=== PATIENT | male | born 1935 | race Caucasian/White ===

== ENCOUNTER 2019-08-23 11:43 | Emergency (ER) | payer MEDICARE, OTHER ==
[~2019-08-23] VITALS: Ht 182.9 cm; Wt 72.6 kg
[2019-08-23 12:26] LABS: BASOPHILS # (AUTO) 0.1 (0.0-0.1); BASOPHILS % 0.5 % (0.0-1.0); EOSINOPHILS # (AUTO) 0.1 (0.0-0.4); EOSINOPHILS % 0.9 % (0.0-6.0); HEMATOCRIT 27.3 % (38.2-49.6); HEMOGLOBIN 9.1 g/dL (14.0-18.0); LYMPHOCYTES # (AUTO) 1.3 (1.0-3.2); LYMPHOCYTES % 12.7 % (18.0-39.1); MEAN CORPUSCULAR HEMOGLOBIN 29.6 pg (28-32); MEAN CORPUSCULAR HGB CONC 33.3 g/dL (31-35); MEAN CORPUSCULAR VOLUME 88.9 fL (81-99); MONOCYTES # (AUTO) 0.6 (0.2-0.8); MONOCYTES % 5.9 % (4.4-11.3); NEUTROPHILS % 79.6 % (38.7-80.0); PLATELET COUNT 243 x10e3/uL (140-360); RED BLOOD COUNT 3.07 x10e6/uL (4.3-5.7); RED CELL DISTRIBUTION WIDTH 13.1 % (11.7-14.4)
[2019-08-23 12:53] LABS: ALANINE AMINOTRANSFERASE 17 IU/L (0-55); ALBUMIN 3.4 g/dL (3.5-5.0); ALBUMIN/GLOBULIN RATIO 1.2 (0.8-2.0); ALKALINE PHOSPHATASE 89 IU/L (40-150); ANION GAP 15.2 mmol/L (8-16); BLOOD UREA NITROGEN 44 mg/dL (7-26); BUN/CREATININE RATIO 38 (6-25); CALCIUM 9.5 mg/dL (8.4-10.2); CARBON DIOXIDE 21 mmol/L (22-29); CHLORIDE 104 mmol/L (98-107); CREATINE KINASE 51 IU/L (30-200); CREATININE, SERUM 1.15 mg/dL (0.72-1.25); EST GLOMERULAR FILTRATION RATE > 60 ML/MIN (60-); GLUCOSE 341 mg/dL (74-118); LIPASE 48 U/L (8-78); POTASSIUM 5.2 mmol/L (3.5-5.1); SODIUM 135 mmol/L (136-145)
--- NOTE | 2019-08-23 13:09 | Emergency Department Note ---
History of Present Illnes History of Present Illness Chief Complaint: Chest Pain History of Present Illness This is a 83 year old male brought to the ED with diffuse abdominal pain for several days, and this recent weight loss. . \ Chief Complaint Comment PATIENT IN FROM HOME WITH COMPLAINTS OF NAUSEA AND ABDOMINAL PAIN X MONTHS; STATES THAT HE IS SUPPOSED TO HAVE A COLONOSCOPY ON MONDAY, AND WHEN HE WENT TO [facility] HE HAD A NEAR SYNCOPAL EPISODE. PATIENT REPORTS RECENT WEIGHT LOSS, AND NAUSEA. PATIENT APPEARS IN NO DISTRESS, RATES PAIN 08/27, RESP EVEN AND NONLABORED Historian: Patient Arrival Mode: Car Auto Hauler Required: No Onset (how long ago): day(s) Radiation: non-radiation Severity: moderate Onset quality: gradual Duration (how long): day(s) Timing of current episode: constant Progression: worsening Chronicity: new Relieving factors: none (MIKAYLA MILLER DO) Past Medical/Family History Physician Review I have reviewed the patient's past medical and family history. Any updates have been documented here. (MIKAYLA MILLER DO) Past Medical History Recent Fever: No Clinical Suspicion of Infectio: No New/Unexplained Change in Ment: No Past Medical History: Hypertension, GERD, Hyperlipedemia Past Surgical History: None (MIKAYLA MILLER DO) Social History Smoking Cessation: Never Smoker Counseling Performed: No Alcohol Use: None Any Illegal Drug Use: No TB Exposure/Symptoms: No Physically hurt or threatened: No (MIKAYLA MILLER DO) Family History Family history of heart diseas: No (MIKAYLA MILLER DO) Other Last Tetanus: UNKNOWN Any Pre-Existing Lines (PICC,: No Is patient up to date on immun: Yes Last Flu: utd Last Pneumovax: utd (MIKAYLA MILLER, ) Review of Systems Review of Systems Constitutional: no symptoms EENTM: no symptoms Cardiovascular: no symptoms Respiratory: no symptoms Gastrointestinal: no symptoms, abdominal pain, other (weight loss generalized malaise) Genitourinary: no symptoms Musculoskeletal: no symptoms Neurological: no symptoms Psychological: no symptoms Endocrine: no symptoms Hematological/Lymphatic: no symptoms Review of other systems All other systems reviewed and negative. (MIKAYLA MILLER DO) Physical Exam Related Data Allergies: Coded Allergies: No Known Allergies (Unverified , 08/22/19) Triage Vital Signs Vital Signs Date Time Temp Pulse Resp B/P (MAP) Pulse Ox O2 Delivery O2 Flow Rate FiO2 08/23/19 11:47 97.8 90 20 101/61 98 Vital signs reviewed: Yes (MIKAYLA MILLER, ) Physical Exam CONSTITUTIONAL Constitutional: cachectic, other (dry mucosa) HENT HENT: normocephalic, atraumatic, oropharynx clear/moist, nose normal HENT L/R: left ext ear normal, right ext ear normal EYES Eyes: PERRL, conjunctivae normal NECK PULMONARY Pulmonary: effort normal, breath sounds normal CARDIOVASCULAR Cardiovascular: regular rhythm, heart sounds normal, capillary refill normal, normal rate GASTROINTESTINAL Abdominal: soft, tender GENITOURINARY SKIN MUSCULOSKELETAL Musculoskeletal: ROM normal, edema NEUROLOGICAL Neurological: alert, oriented x 3 PSYCHOLOGICAL (MIKAYLA MILLER, ) Results Laboratory Result Diagram: 08/23/19 0645 Laboratory Laboratory Tests Test 08/23/19 11:55 White Blood Count 10.09 x10e3/uL (4.8-10.8) Red Blood Count 3.07 x10e6/uL (4.3-5.7) Hemoglobin 9.1 g/dL (14.0-18.0) Hematocrit 27.3 % (38.2-49.6) Mean Corpuscular Volume 88.9 fL (81-99) Mean Corpuscular Hemoglobin 29.6 pg (28-32) Mean Corpuscular Hemoglobin Concent 33.3 g/dL (31-35) Red Cell Distribution Width 13.1 % (11.7-14.4) Platelet Count 243 x10e3/uL (140-360) Neutrophils (%) (Auto) 79.6 % (38.7-80.0) Lymphocytes (%) (Auto) 12.7 % (18.0-39.1) Monocytes (%) (Auto) 5.9 % (4.4-11.3) Eosinophils (%) (Auto) 0.9 % (0.0-6.0) Basophils (%) (Auto) 0.5 % (0.0-1.0) Neutrophils # (Auto) 8.0 (2.1-6.9) Lymphocytes # (Auto) 1.3 (1.0-3.2) Monocytes # (Auto) 0.6 (0.2-0.8) Eosinophils # (Auto) 0.1 (0.0-0.4) Basophils # (Auto) 0.1 (0.0-0.1) Absolute Immature Granulocyte (auto 0.04 x10e3/uL (0-0.1) Lab results reviewed: Yes (MIKAYLA MILLER DO) Critical Care Time Subsequent provider I assumed direction of critical care for this patient from another provider of my specialty. (MIKAYLA MILLER DO) Assessment & Plan Assessment & Plan Final Impression: (1) GENERALIZED ABDOMINAL PAIN Assessment & Plan CBC, CMP, lipase CT of the pelvis 83-year-old male brought to the ED with diffuse abdominal pain, admits to recent weight loss. Concerns of possible malignancy. CT abdomen and pelvis was performed, results are pending. Dr. Bueno to follow-up final CT scan and distal patient accordingly. (MIKAYLA MILLER DO) Final Impression: (1) GENERALIZED ABDOMINAL PAIN (2) Mass of pancreas Assessment & Plan Patient's CT revealed pancreatic mass that appears to be stage IV with metastasis to liver. No obstructions were found. I discussed findings with the patient he will follow up with an oncologist. I referred him to Dr. Chapman for follow-up. (MICHAEL BUENO MD) Last Vital Signs Date Time Temp Pulse Resp B/P (MAP) Pulse Ox O2 Delivery O2 Flow Rate FiO2 08/23/19 11:47 97.8 90 20 101/61 98 (MIKAYLA MILLER DO) Home Meds Reported Medications Lisinopril (LISINOPRIL) 10 Mg Tablet, 20 MG PO DAILY, #30 TAB 08/22/19 Gemfibrozil (GEMFIBROZIL) 600 Mg Tablet, PO BID 08/22/19 MIKAYLA MILLER DO Aug 23, 2019 13:25 MICHAEL BUENO MD Aug 23, 2019 20:22
--- NOTE | 2019-08-23 15:54 | Diagnostic Imaging Report ---
X-ray chest AP portable Comparison: None History: Upper abdominal pain Findings: The study submitted on 2 images. Central airways unremarkable. Heart size borderline. Aorta unremarkable. No pleural effusion. No pneumothorax. Other mediastinal silhouettes unremarkable. Lung szymanski unremarkable. Visualized skeletal structures show minimal degenerative changes. Upper abdomen unremarkable. Impression: No significant abnormality seen. Signed by: Chris Malhotra MD on 08/23/2019 3:51 PM
[2019-08-23] MEDS ORDERED: IOPAMIDOL 370 MG/ML 200 ML INFUS..BTL INJ ONE (18:54)
[2019-08-23] MEDS ORDERED: SODIUM CHLORIDE 0.9% 50ML 50 ML ONE (18:54)
--- NOTE | 2019-08-23 20:00 | Diagnostic Imaging Report ---
EXAM: CT Abdomen and Pelvis WITH contrast INDICATION: Severe abdominal pain. Nausea. COMPARISON: None. TECHNIQUE: Abdomen and pelvis were scanned utilizing a multidetector helical scanner from the lung base to the pubic symphysis after administration of IV contrast. Coronal and sagittal reformations were obtained. Routine protocol was performed. Scan was performed when during portal venous phase. IV CONTRAST: 100 cc Isovue-300 ORAL CONTRAST: Water RADIATION DOSE: Total DLP: 280 mGy*cm Estimated effective dose: (DLP x 0.015 x size factor) mSv COMPLICATIONS: None FINDINGS: LINES and TUBES: None. LOWER THORAX: Unremarkable HEPATOBILIARY: There are a few low-attenuation lesions scattered throughout the hepatic parenchyma ; for instance, a 1.4 cm low-attenuation lesion in segment 6 of the liver anteriorly on image 31. Ill-defined 1.9 cm low-attenuation lesion in segment 8 of the liver on image 22. 2.2 cm low-attenuation lesion in segment 4A on image 14 No biliary ductal dilation. GALLBLADDER: A few calcified calculi within the gallbladder lumen. No wall thickening. SPLEEN: No splenomegaly. PANCREAS: There is a heterogeneous irregular mass in the proximal pancreatic body estimated at 5.3 x 4.6 cm on image 26 series 2. There is mild dilatation of the main pancreatic duct distal to the mass within the atrophic distal pancreas body and tail. There is extensive collateral circulation in the upper abdomen particularly about the pancreas and stomach. The mass encases the distal celiac axis, including its branches (common hepatic artery, splenic artery and left gastric artery well demonstrated on image 23 series 2. There is abutment of the distal superior mesenteric artery as seen on image 30, however, without complete encasement. ADRENALS: 3.1 x 2.3 cm lesion in the left adrenal gland on image 86. There is mild diffuse thickening of the right adrenal gland with nodular contour suggestive of presence of nodules. KIDNEYS/URETERS: Kidneys enhance symmetrically. No hydronephrosis. No cystic or solid mass lesions. No stones. GI TRACT: No abnormal distention, wall thickening, or evidence of bowel obstruction. Appendix is normal. PELVIC ORGANS/BLADDER: Numerous prostatic brachytherapy seeds. LYMPH NODES: Mildly enlarged peripancreatic lymph nodes. VESSELS: There is mild to moderate atherosclerotic disease in the aorta and major arterial branches. PERITONEUM / RETROPERITONEUM: No free air or fluid. BONES: There are degenerative changes in the lumbar spine. Grade 1 anterolisthesis of L4 in relation to L5. SOFT TISSUES: Unremarkable. IMPRESSION: 1. 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 Vascular encasement as detailed above. 2. Bilateral adrenal metastasis. 3. Cholelithiasis. No biliary dilatation. Signed by: Dr. La Lema M.D. on 08/23/2019 7:56 PM
== END 2019-08-23 20:40 | disposition home or self-care (01) ==
LOC: ER 11:43
DX: R10.84 Generalized abdominal pain (principal); R63.4 Abnormal weight loss; K86.9 Disease of pancreas, unspecified
CPT/HCPCS: 36415; 71045; 74177; 80053; 82550; 82553; 83690; 83880; 84484; 85025; 99284; Q9967

== ENCOUNTER → 2019-08-23 | Outpatient (CLI) | payer MEDICARE, OTHER ==
[~2019-08-23] MED LIST: GEMFIBROZIL600 MG PO; LISINOPRIL10 MG PO
[2019-08-23 11:17] LABS: BASOPHILS # (AUTO) 0.1 (0.0-0.1); BASOPHILS % 0.7 % (0.0-1.0); EOSINOPHILS # (AUTO) 0.2 (0.0-0.4); EOSINOPHILS % 1.5 % (0.0-6.0); HEMATOCRIT 27.3 % (38.2-49.6); HEMOGLOBIN 9.1 g/dL (14.0-18.0); LYMPHOCYTES # (AUTO) 1.2 (1.0-3.2); LYMPHOCYTES % 12.4 % (18.0-39.1); MEAN CORPUSCULAR HEMOGLOBIN 29.8 pg (28-32); MEAN CORPUSCULAR HGB CONC 33.3 g/dL (31-35); MEAN CORPUSCULAR VOLUME 89.5 fL (81-99); MONOCYTES # (AUTO) 0.6 (0.2-0.8); MONOCYTES % 6.2 % (4.4-11.3); NEUTROPHILS # (AUTO) 7.7 (2.1-6.9); NEUTROPHILS % 78.8 % (38.7-80.0); PLATELET COUNT 223 x10e3/uL (140-360); RED BLOOD COUNT 3.05 x10e6/uL (4.3-5.7)
== END | disposition home or self-care (01) ==
LOC: DX 10:12 → EDSTATUS 08-27 11:30
PROVIDERS: ATTEND Internal Medicine Gastroenterology
DX: Z12.11 Encounter for screening for malignant neoplasm of colon (principal); Z01.810 Encounter for preprocedural cardiovascular examination; Z01.812 Encounter for preprocedural laboratory examination; Z11.59 Encounter for screening for other viral diseases; Z53.9 Procedure and treatment not carried out, unspecified reason
CPT/HCPCS: 36415; 85025; 93005; U0002